=== PATIENT | female | born 1995 | race American Indian/Alaskan Native ===

== ENCOUNTER 2017-12-18 17:50 | Emergency (ER) | payer SELFPAY ==
[2017-12-18 18:16] VITALS: BP 116/65
--- NOTE | 2017-12-18 20:21 | Emergency Department Report ---
Eye Injury/Foreign Body - HPI Duration: Today Eye Location: Right Severity: Mild Eye Symptoms: Eye Pain: Yes, Blurred Vision: No, Eye Redness: No, Grinding/ Hammering Metal: No, Used Eye Protection: No, Contact Lens Use: No, Recalls Injury: No, Photophobia: No Other History: 22-year-old female presents with complaint of right eye discomforts. States that she woke up this morning with redness and irritation to her right eye. Foreign body sensation. Denies any direct trauma. Denies anything splashing in her eye. Patient states she wears contact lenses and removed her contact lenses this morning. Patient is awake alert and oriented 3. States her tetanus vaccination status is up-to-date. States she has had persistent tearing and some mucoid discharge from right eye since this morning. ED Review of Systems ROS: Stated complaint: RIGHT EYE IRRITATION Other details as noted in HPI Constitutional: denies: chills, fever Eyes: eye pain, eye discharge. denies: vision change ENT: denies: ear pain, throat pain Respiratory: denies: cough, shortness of breath, wheezing Cardiovascular: denies: chest pain, palpitations Endocrine: no symptoms reported Gastrointestinal: denies: abdominal pain, nausea, diarrhea Genitourinary: denies: urgency, dysuria, discharge Musculoskeletal: denies: back pain, joint swelling, arthralgia Skin: denies: rash, lesions Neurological: denies: headache, weakness, paresthesias Psychiatric: denies: anxiety, depression Hematological/Lymphatic: denies: easy bleeding, easy bruising ED Past Medical Hx - Past Medical History Previous Medical History?: No - Surgical History Past Surgical History?: No - Social History Smoking Status: Current Some Day Smoker Substance Use Type: Alcohol, Marijuana - Medications Home Medications: Home Medications Medication Instructions Recorded Confirmed Last Taken Type Ibuprofen [Motrin] 800 mg PO Q8HR PRN #20 tablet 12/18/17 Unknown Rx Naphazoline HCl/Pheniramine 1 drop OP Q4H PRN #1 drops 12/18/17 Unknown Rx [Naphcon-A Eye Drops] Tobramycin 0.3% [Tobrex] 1 drop OD Q4H #1 bottle 12/18/17 Unknown Rx Eye Injury Exam - Exam General: Vital signs noted. No distress. Alert and acting appropriately. - Visual Acuity Right Vision Acuity Degree: 20/30 Eye Exam: Right Injection, Right Chemosis, Both EOMI, Neither Fluorescein Uptake (negative stain exam) ED Course Vital Signs 12/18/17 18:13 Temperature 99.8 F H Pulse Rate 79 Respiratory 20 Rate Blood Pressure 116/65 O2 Sat by Pulse 100 Oximetry ED Medical Decision Making - Medical Decision Making A/P: Conjunctivitis 1-eyedrops, anti-inflammatories 2-visual acuity intact on exam 3-follow-up with primary care scrap sorter Critical care attestation.: If time is entered above; I have spent that time in minutes in the direct care of this critically ill patient, excluding procedure time. ED Disposition Clinical Impression: Conjunctivitis, right eye Qualifiers: Conjunctivitis type: acute Acute conjunctivitis type: unspecified Qualified Code(s): H10.31 - Unspecified acute conjunctivitis, right eye Disposition: TO HOME OR SELFCARE Is pt being admited?: No Does the pt Need Aspirin: No Condition: Stable Instructions: Conjunctivitis (ED) Prescriptions: Ibuprofen [Motrin] 800 mg PO Q8HR PRN #20 tablet PRN Reason: Pain Naphazoline HCl/Pheniramine [Naphcon-A Eye Drops] 1 drop OP Q4H PRN #1 drops PRN Reason: Dry Eye(S) Tobramycin 0.3% [Tobrex] 1 drop OD Q4H #1 bottle Referrals: JUAN CARLOS LEE MD [Staff Physician] - 3-5 Days MARLYN CROCKER MD [Staff Physician] - 3-5 Days Forms: Work/School Release Form(ED) Time of Disposition: 20:59
[2017-12-18] MEDS ORDERED: FUL-GLO OP ONE (20:22)
== END 2017-12-18 21:10 | disposition home or self-care (01) ==
LOC: ED 17:50
DX: H10.31 Unspecified acute conjunctivitis, right eye (principal); F17.200 Nicotine dependence, unspecified, uncomplicated; F12.10 Cannabis abuse, uncomplicated
CPT/HCPCS: 99282

== ENCOUNTER 2018-02-07 16:41 | Emergency (ER) | payer OTHER ==
[2018-02-07 16:48] VITALS: BP 115/56
[2018-02-07] MEDS ORDERED: MOTRIN ONE (17:21)
[2018-02-07] MEDS ORDERED: MOTRIN PO ONE (17:23)
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
== END 2018-02-07 18:11 | disposition home or self-care (01) ==
LOC: ED 16:41
DX: S16.1XXA Strain of muscle, fascia and tendon at neck level, initial encounter (principal); S00.531A Contusion of lip, initial encounter; G44.319 Acute post-traumatic headache, not intractable; M54.6 Pain in thoracic spine; M62.830 Muscle spasm of back; V49.49XA Driver injured in collision with other motor vehicles in traffic accident, initial encounter; Y93.89 Activity, other specified; Y99.8 Other external cause status; Y92.488 Other paved roadways as the place of occurrence of the external cause
CPT/HCPCS: 99282